=== PATIENT | male | born 1965 | race Caucasian/White ===

== ENCOUNTER 2016-09-13 14:51 | Emergency (ER) | payer MEDICAID ==
[2016-09-13] MEDS ORDERED: ACETAMINOPHEN 325 MG TAB ONE (22:32)
[2016-09-13] MEDS ORDERED: CEFTRIAXONE 1 GM VIAL ONE (22:33)
[2016-09-13] MEDS ORDERED: SODIUM CHLORIDE 0.9% 100 ML IV ONE (22:33)
[2016-09-13] MEDS ORDERED: SODIUM CHLORIDE 0.9% 1,000 ML ONE (22:33)
[2016-09-13] MEDS ORDERED: AZITHROMYCIN 500 MG VIAL IV ONE (23:08)
[2016-09-13] MEDS ORDERED: SODIUM CHLORIDE 0.9% 250 ML IV ONE (23:08)
[2016-09-14] MEDS ORDERED: SODIUM CHLORIDE 0.9% 1,000 ML ONE (00:35)
== END 2016-09-14 02:10 | disposition home or self-care (01) ==
LOC: ER 14:51
DX: R50.9 Fever, unspecified (principal); J18.9 Pneumonia, unspecified organism; Z79.899 Other long term (current) drug therapy
CPT/HCPCS: 36415; 71020; 80053; 83605; 85025; 87040; 87804; 87880; 96361; 96365; 96367